=== PATIENT | female | born 1950 | race Caucasian/White ===

== ENCOUNTER 2017-01-21 15:04 | Emergency (ER) | payer MEDICARE ==
[~2017-01-21] VITALS: Ht 162.6 cm; Wt 91.0 kg
[~2017-01-21 15:04] MED LIST: ASCO-96 PO; ASPI-496 PO; ATOR40TA78 PO; BIOT25004 PO; CALC-255 PO; CHOL500015 PO; CIDE300T PO; DIAZ5TAB PO; FISH OIL PO; HYDR-3144 PO; HYDR-3307 PO; LOSA50TA6 PO; MELA5TAB PO; MELATONIN PO; METF500T4 PO; METH750T2 PO; MINO100C PO; MULT-6 PO; OXYC-229 PO; OXYC-302 PO; SENN8.6T12 PO; VITAMIN B PO; VITAMIN D PO; [UNRECOGNIZED DRUG - CODE] PO
[2017-01-21 16:10] VITALS: BP 116/52
[2017-01-21] MEDS ORDERED: LEVO5TAB29 PO (16:12)
[2017-01-21] MEDS ORDERED: OXYB5TAB PO (16:12)
[2017-01-21] MEDS ORDERED: BACL-19 PO (16:14)
[2017-01-21] MEDS ORDERED: POTA15TA9 PO (16:14)
[2017-01-21 16:21] LABS: BLOOD UREA NITROGEN 20 mg/dL (7-18)
[2017-01-21 16:25] LABS: ASPARTATE AMINO TRANSFERASE 20 U/L (15-37)
[2017-01-21] MEDS ORDERED: SODIUM CHLORIDE FLUSH 10ML SYR IVF ONE (16:30)
[2017-01-21] MEDS ORDERED: ONDANSETRON 2MG/ML, 2ML IVPush ONE (16:30)
[2017-01-21] MEDS ORDERED: HYDROmorphone 1 MG/ML, 1ML IVPush PRN (16:30)
== END 2017-01-21 18:31 | disposition home or self-care (01) ==
LOC: ED 18:12
DX: M54.5 Low back pain (principal); E11.9 Type 2 diabetes mellitus without complications; E78.5 Hyperlipidemia, unspecified; F17.200 Nicotine dependence, unspecified, uncomplicated
CPT/HCPCS: 36415; 74176; 80053; 81001; 85025; 87086; 99285

== ENCOUNTER → 2017-04-05 | Outpatient (CLI) | payer MEDICARE ==
[~2017-04-05] MED LIST changes: +BACL-19 PO; +LEVO5TAB29 PO; -MELA5TAB PO; +MELA5TAB19 PO; +OXYB5TAB PO; +POTA15TA9 PO
== END | disposition home or self-care (01) ==
LOC: CFH 13:32
PROVIDERS: ATTEND Nurse Practitioner Family
DX: M48.07 Spinal stenosis, lumbosacral region (principal); G95.89 Other specified diseases of spinal cord; M50.30 Other cervical disc degeneration, unspecified cervical region; M25.78 Osteophyte, vertebrae; M50.322 Other cervical disc degeneration at C5-C6 level; M50.222 Other cervical disc displacement at C5-C6 level; M51.24 Other intervertebral disc displacement, thoracic region; M51.36 Other intervertebral disc degeneration, lumbar region; Z98.890 Other specified postprocedural states
CPT/HCPCS: 72050; 72110; 72141; 72148

== ENCOUNTER → 2017-12-06 | Outpatient (CLI) | payer MEDICARE ==
[~2017-12-06] MED LIST changes: -BIOT25004 PO; +BIOT25005 PO; -HYDR-3144 PO; +HYDR-3245 PO; -OXYC-229 PO; +OXYC-307 PO
== END | disposition home or self-care (01) ==
LOC: CFH 09:03
PROVIDERS: ATTEND Physician Assistant Surgical
DX: N20.0 Calculus of kidney (principal)
CPT/HCPCS: 74018

== ENCOUNTER → 2018-03-30 | Outpatient (CLI) | payer MEDICARE ==
[~2018-03-30] MED LIST changes: -METF500T4 PO; +METF500T5 PO
== END | disposition home or self-care (01) ==
LOC: CFH 13:46
PROVIDERS: ATTEND Nurse Practitioner Family
DX: Z12.31 Encounter for screening mammogram for malignant neoplasm of breast (principal); M50.222 Other cervical disc displacement at C5-C6 level; M50.322 Other cervical disc degeneration at C5-C6 level; M47.812 Spondylosis without myelopathy or radiculopathy, cervical region; R92.1 Mammographic calcification found on diagnostic imaging of breast
CPT/HCPCS: 72050; 72141; 77063; 77067

== ENCOUNTER → 2018-06-20 | Outpatient (CLI) | payer MEDICARE ==
[~2018-06-20] MED LIST changes: +CEPH-375 PO; +DULO30CA2 PO; +GABA-826 PO; -LOSA50TA6 PO; +LOSA50TA7 PO; +METF500T17 PO; -METF500T5 PO
[2018-06-20 08:50] LABS: BASOPHILS # (AUTO) 0.04 x10^3/uL (0-0.1); BASOPHILS % (AUTO) 0 % (0-1); EOSINOPHILS # (AUTO) 0.24 x10^3/uL (0-0.4); EOSINOPHILS % (AUTO) 3 % (1-7); LYMPHOCYTES # (AUTO) 1.51 x10^3/uL (1-3.4); LYMPHOCYTES % (AUTO) 19 % (22-44); MD NO; MEAN CORPUSCULAR HEMOGLOBIN 33.1 pg (27.0-34.8); MEAN CORPUSCULAR HGB CONC 33.6 g/dL (32.4-35.8); MEAN CORPUSCULAR VOLUME 98.5 fL (80-100); MEAN PLATELET VOLUME 7.7 fL (7.4-10.4); MONOCYTES # (AUTO) 0.51 x10^3/uL (0.2-0.8); MONOCYTES % (AUTO) 6 % (2-9); NEUTROPHILS # (AUTO) 5.88 x10^3/uL (1.8-6.8); NEUTROPHILS % (AUTO) 72 % (42-75); PLATELET COUNT 261 x10^3/uL (130-400); RED BLOOD COUNT 4.53 x10^6/uL (3.82-5.3); RED CELL DISTRIBUTION WIDTH 14.5 % (9.6-15.2)
[2018-06-20 08:53] LABS: MICROSCOPIC NOT IND
[2018-06-20 08:58] LABS: INTERNATIONAL NORMALIZED RATIO 1.02 (0.93-1.1); PROTHROMBIN TIME 10.5 Seconds (9.6-11.5)
[2018-06-20 08:59] LABS: ALANINE AMINOTRANSFERASE 32 U/L (12-78); ALBUMIN 3.4 g/dL (3.4-5.0); ANION GAP 8 mmol/L (5-15); CALCIUM 8.3 mg/dL (8.5-10.1); CHLORIDE 109 mmol/L (98-107); CREATININE 0.75 mg/dL (0.55-1.02)
[2018-06-20 09:01] LABS: ALKALINE PHOSPHATASE 60 U/L (45-117); BILIRUBIN,TOTAL 0.3 mg/dL (0.2-1.0); TOTAL PROTEIN 6.8 g/dL (6.4-8.2)
[2018-06-20 09:06] LABS: CULTURE INDICATED? NO
== END | disposition home or self-care (01) ==
LOC: STAR 07:51
PROVIDERS: ATTEND Neurological Surgery
DX: Z01.818 Encounter for other preprocedural examination (principal); M47.812 Spondylosis without myelopathy or radiculopathy, cervical region; I10 Essential (primary) hypertension
CPT/HCPCS: 36415; 71046; 72050; 80053; 81003; 85025; 85610; 85730; 93005

== ENCOUNTER 2018-07-05 11:52 | Inpatient (IN) | payer MEDICARE ==
[~2018-07-05] VITALS: Ht 162.6 cm; Wt 78.3 kg
[~2018-07-05 11:52] MED LIST changes: +BACITRACIN 50,000 UNIT ONE; -BIOT25005 PO; +BUPIVACAINE/PF-EPI 0.5% 1:200K ONE; +THROMBIN 5,000 UNIT VIAL TP ONE
[2018-07-05] MEDS ORDERED: LACTATED RINGERS 1,000 ML IV SCH (12:27)
[2018-07-05] MEDS ORDERED: FENTANYL PF 250 MCG/5ML ONE ×2 (12:45→14:17)
[2018-07-05] MEDS ORDERED: MIDAZOLAM 1 MG/ML, 2ML ONE (12:45)
[2018-07-05] MEDS ORDERED: PROPOFOL 50 ML ONE ×2 (12:50→14:45)
[2018-07-05 13:04] VITALS: BP 120/72
[2018-07-05] MEDS ORDERED: ONDANSETRON 2MG/ML, 2ML ONE (13:53)
[2018-07-05] MEDS ORDERED: SUCCINYLCHOLINE 20 MG/ML, 10ML ONE (13:53)
[2018-07-05] MEDS ORDERED: DEXAMETHASONE 4 MG/ML, 1ML ONE (13:53)
[2018-07-05] MEDS ORDERED: LIDOCAINE 4%, 4 ML SYR/CANN TP ONE (13:53)
[2018-07-05] MEDS ORDERED: ROCURONIUM 10 MG/ML,10ML ONE (13:53)
[2018-07-05] MEDS ORDERED: CEFAZOLIN 1,000 MG ONE (13:53)
[2018-07-05] MEDS ORDERED: LIDOCAINE-MPF 2% ,5ML ONE (13:53)
[2018-07-05] MEDS ORDERED: EPHEDRINE 50 MG/ML, 1ML ONE (14:20)
[2018-07-05] MEDS ORDERED: OXYcodone 5 MG/5 ML ORAL.SOL UDC ONE (16:13)
[2018-07-05] MEDS: FENTANYL PF 100 MCG/2ML IV PRN ×2 (16:25→16:44)
[2018-07-05] MEDS ORDERED: FENTANYL PF 100 MCG/2ML ONE (16:25)
[2018-07-05] MEDS ORDERED: LABETALOL 5MG/ML, 20ML IV PRN (16:30)
[2018-07-05] MEDS ORDERED: DIPHENHYDRAMINE 50 MG/ML, 1ML IVPush PRN ×2 (16:30→18:30)
[2018-07-05] MEDS ORDERED: MIDAZOLAM 1 MG/ML, 2ML IV PRN (16:30)
[2018-07-05] MEDS ORDERED: PROMETHAZINE 12.5 MG SUPP PR PRN (16:30)
[2018-07-05] MEDS ORDERED: hydrALAzine 20 MG/ML, 1ML IV PRN (16:30)
[2018-07-05] MEDS ORDERED: ONDANSETRON 2MG/ML, 2ML IV PRN (16:30)
[2018-07-05] MEDS ORDERED: ALBUTEROL/IPRATROPIUM 2.5MG/0.5MG, 3 ML NPPB PRN (16:30)
[2018-07-05] MEDS ORDERED: OXYcodone 5 MG/5 ML ORAL.SOL UDC PO PRN (16:30)
[2018-07-05] MEDS ORDERED: HYDROmorphone 1 MG/ML, 1ML IV PRN (16:30)
[2018-07-05] MEDS ORDERED: HYDROcodone/APAP 10/325 MG TABLET PO PRN (18:30)
[2018-07-05] MEDS ORDERED: MAGNESIUM HYDROXIDE 8%, 30ML UDC PO PRN (18:30)
[2018-07-05] MEDS ORDERED: BISACODYL 10 MG SUPP PR PRN (18:30)
[2018-07-05] MEDS ORDERED: NS + 20MEQ KCL 1,000 ML IV SCH (18:30)
[2018-07-05] MEDS ORDERED: PROMETHAZINE 25 MG/ML, 1ML IM PRN (18:30)
[2018-07-05] MEDS ORDERED: DIPHENHYDRAMINE 25 MG CAPSULE PO PRN (18:30)
[2018-07-05] MEDS ORDERED: morphine SULFATE 10 MG/ML, 1ML IV PRN (18:30)
[2018-07-05 20:01] VITALS: BP 134/77
[2018-07-05] MEDS ORDERED: ATORVASTATIN 20 MG TABLET PO SCH (21:00)
[2018-07-05] MEDS: ONDANSETRON 2MG/ML, 2ML IV PRN (21:18)
[2018-07-05] MEDS: BACLOFEN 10 MG TABLET PO SCH (22:03)
[2018-07-05] MEDS: LOSARTAN 50MG TABLET PO SCH (22:03)
[2018-07-05] MEDS: OXYBUTYNIN CHLORIDE 5 MG TABLET PO SCH (22:03)
[2018-07-05] MEDS: CEFAZOLIN PMX 1GM/50ML 50 ML IVPB SCH (22:03)
[2018-07-05] MEDS: GABAPENTIN 100 MG CAPSULE PO SCH (22:03)
[2018-07-05] MEDS: POTASSIUM CITRATE 1620 MG HOMEMEDPO SCH (22:04)
[2018-07-06 00:08] VITALS: BP 145/69
[2018-07-06] MEDS: ONDANSETRON 2MG/ML, 2ML IV PRN (03:37)
[2018-07-06 04:18] VITALS: BP 127/62
[2018-07-06] MEDS: OXYcodone/APAP 5/325MG TABLET PO PRN ×3 (05:54→10:45)
[2018-07-06] MEDS: CEFAZOLIN PMX 1GM/50ML 50 ML IVPB SCH (06:33)
[2018-07-06 07:01] VITALS: BP 126/76
[2018-07-06] MEDS: GABAPENTIN 100 MG CAPSULE PO SCH (07:49)
[2018-07-06] MEDS: BACLOFEN 10 MG TABLET PO SCH (07:49)
[2018-07-06] MEDS: OXYBUTYNIN CHLORIDE 5 MG TABLET PO SCH (07:49)
[2018-07-06] MEDS: LOSARTAN 50MG TABLET PO SCH (07:49)
[2018-07-06] MEDS: POTASSIUM CITRATE 1620 MG HOMEMEDPO SCH (07:53)
[2018-07-06] MEDS ORDERED: metFORMIN 500 MG TABLET PO SCH (08:00)
[2018-07-06] MEDS ORDERED: CHOLECALCIFEROL 5,000u TAB PO SCH (09:00)
[2018-07-06] MEDS ORDERED: DULOXETINE 30 MG CAPSULE.DR PO SCH (09:00)
[2018-07-06] MEDS ORDERED: SENNA/DOCUSATE TABLET PO SCH (09:00)
[2018-07-06] MEDS ORDERED: OXYC1TAB7 PO (09:09)
[2018-07-06] MEDS ORDERED: BACL-19 PO (09:09)
[2018-07-06] MEDS ORDERED: BIOT25005 PO (17:13)
== END 2018-07-06 12:18 | disposition home or self-care (01) | DRG 473 ==
LOC: OUT 11:52 → 4NOR 17:03 → OUT 23:17 → OBSVTOIN 23:18 → 4NOR 23:18 → DCLOUNGE 07-06 11:59
PROVIDERS: ADMIT Neurological Surgery; ATTEND Neurological Surgery
PROC: 0RB30ZZ Excision of Cervical Vertebral Disc, Open Approach (ICD-10-PCS; 2018-07-05)
PROC: 4A11X4G Monitoring of Peripheral Nervous Electrical Activity, Intraoperative, External Approach (ICD-10-PCS; 2018-07-05)
PROC: 0RG20A0 Fusion of 2 or more Cervical Vertebral Joints with Interbody Fusion Device, Anterior Approach, Anterior Column, Open Approach (ICD-10-PCS; principal; 2018-07-05 14:00)
DX: M50.123 Cervical disc disorder at C6-C7 level with radiculopathy (principal); M25.78 Osteophyte, vertebrae; I10 Essential (primary) hypertension; R11.0 Nausea; G47.30 Sleep apnea, unspecified
CPT/HCPCS: 72040; 82962; 95938; 95941; 96365; 96366; 96375; 96376; C1713; G0378; J0690; J1100; J2250; J2270; J2405; J2704; J3010; J3480; J3490; J0330; J7120

== ENCOUNTER 2019-01-09 09:45 | Outpatient (CLI) | payer MEDICARE ==
[~2019-01-09 09:45] MED LIST changes: -BACITRACIN 50,000 UNIT ONE; +BIOT25005 PO; -BUPIVACAINE/PF-EPI 0.5% 1:200K ONE; +LOSA50TA14 PO; -LOSA50TA7 PO; +OXYC1TAB7 PO; -THROMBIN 5,000 UNIT VIAL TP ONE
[2019-01-09 12:58] LABS: BASOPHILS # (AUTO) 0.04 x10^3/uL (0-0.1); BASOPHILS % (AUTO) 1 % (0-1); EOSINOPHILS # (AUTO) 0.29 x10^3/uL (0-0.4); EOSINOPHILS % (AUTO) 4 % (1-7); LYMPHOCYTES # (AUTO) 1.49 x10^3/uL (1-3.4); LYMPHOCYTES % (AUTO) 19 % (22-44); MD NO; MEAN CORPUSCULAR HGB CONC 34.3 g/dL (32.4-35.8); MEAN CORPUSCULAR VOLUME 99.1 fL (80-100); MEAN PLATELET VOLUME 7.8 fL (7.4-10.4); MONOCYTES % (AUTO) 5 % (2-9); NEUTROPHILS # (AUTO) 5.88 x10^3/uL (1.8-6.8); NEUTROPHILS % (AUTO) 73 % (42-75); PLATELET COUNT 306 x10^3/uL (130-400); RED BLOOD COUNT 4.61 x10^6/uL (3.82-5.3); RED CELL DISTRIBUTION WIDTH 13.4 % (9.6-15.2)
[2019-01-09 13:05] LABS: HEMOGLOBIN A1C 5.7 % (4.2-6.3)
[2019-01-09 13:37] LABS: CHLORIDE 111 mmol/L (98-107)
[2019-01-09 14:08] LABS: ALANINE AMINOTRANSFERASE 33 U/L (12-78); ALBUMIN 3.9 g/dL (3.4-5.0); ALKALINE PHOSPHATASE 82 U/L (45-117); ANION GAP 6 mmol/L (5-15); BILIRUBIN,TOTAL 0.1 mg/dL (0.2-1.0); CALCIUM 8.8 mg/dL (8.5-10.1); CHOLESTEROL, TOTAL 159 mg/dL (140-239); CREATININE 0.78 mg/dL (0.55-1.02); HDL CHOL % 25 % (28-40); HDL CHOLESTEROL (DIRECT) 40 mg/dL (40-60); LDL CHOLESTEROL,CALCULATED 95 mg/dL (54-169); LDL/HDL RATIO 2.4 (0.5-3.0); TOTAL PROTEIN 7.1 g/dL (6.4-8.2); TRIGLYCERIDES 121 mg/dL (50-200); VLDL CHOLESTEROL 24 mg/dL (0-25)
[2019-01-09 14:19] LABS: FOLATE LEVEL > 20.0 ng/mL (3.1-17.5)
== END 2019-01-09 23:59 | disposition home or self-care (01) ==
LOC: CFH 09:45
PROVIDERS: ATTEND Nurse Practitioner Primary Care
DX: M53.2X2 Spinal instabilities, cervical region (principal); M50.30 Other cervical disc degeneration, unspecified cervical region; M85.9 Disorder of bone density and structure, unspecified; I10 Essential (primary) hypertension; E78.2 Mixed hyperlipidemia; G47.30 Sleep apnea, unspecified; E11.9 Type 2 diabetes mellitus without complications; M85.59 Aneurysmal bone cyst, multiple sites; M54.5 Low back pain; M54.31 Sciatica, right side; Z79.899 Other long term (current) drug therapy; Z78.0 Asymptomatic menopausal state
CPT/HCPCS: 36415; 72040; 77080; 80053; 80061; 82043; 82306; 82607; 82746; 83036; 83735; 84207; 84425; 84443; 85025

== ENCOUNTER 2019-03-24 16:09 | Outpatient (CLI) | payer MEDICARE | END 2019-03-24 23:59 | disposition home or self-care (01) | LOC: RAD 16:09 | PROVIDERS: ATTEND Physician Assistant Surgical | DX: Z87.442 Personal history of urinary calculi (principal) | CPT/HCPCS: 74018 ==

== ENCOUNTER 2019-08-24 11:35 | Emergency (ER) | payer MEDICARE ==
[~2019-08-24] VITALS: Ht 165.1 cm; Wt 79.0 kg
[~2019-08-24 11:35] MED LIST changes: -HYDR-3307 PO; +HYDR-36 PO; +MELA5TAB14 PO; -MELA5TAB19 PO; -MINO100C PO; +MINO100C61 PO; -OXYB5TAB PO; +OXYB5TAB2 PO
[2019-08-24 11:42] VITALS: BP 129/70
[2019-08-24] MEDS ORDERED: KETOROLAC 30 MG/1 ML IM ONE ×2 (12:00)
[2019-08-24] MEDS ORDERED: HYDROcodone/APAP 5/325 TABLET PO ONE (12:00)
[2019-08-24] MEDS ORDERED: METHOCARBAMOL 750 MG TABLET PO ONE (12:00)
[2019-08-24] MEDS ORDERED: KETOROLAC 30 MG/1 ML ONE (12:02)
[2019-08-24] MEDS ORDERED: HYDROcodone/APAP 5/325 TABLET ONE (12:02)
[2019-08-24] MEDS ORDERED: METHOCARBAMOL 750 MG TABLET ONE (12:02)
--- NOTE | 2019-08-24 12:09 | NUR ---
Break RN: Pt to Xray in NAD at this time, medicated per orders, see MAR for details.
== END 2019-08-24 12:44 | disposition home or self-care (01) ==
LOC: ED 12:38
DX: S39.012A Strain of muscle, fascia and tendon of lower back, initial encounter (principal); G89.29 Other chronic pain; I10 Essential (primary) hypertension; E78.5 Hyperlipidemia, unspecified; F17.200 Nicotine dependence, unspecified, uncomplicated; Z87.11 Personal history of peptic ulcer disease; W00.0XXA Fall on same level due to ice and snow, initial encounter; Y93.89 Activity, other specified; Y92.89 Other specified places as the place of occurrence of the external cause; Y99.8 Other external cause status
CPT/HCPCS: 72110; 96372; 99283; J1885

== ENCOUNTER 2019-10-06 09:01 | Emergency (ER) | payer MEDICARE ==
[~2019-10-06] VITALS: Ht 162.6 cm; Wt 80.2 kg
--- NOTE | 2019-10-06 09:26 | NUR ---
PT TO ED AFTER MECHANICAL GLF LAST NIGHT, C/O LOCALIZED BACK PAIN, NO N/T OR PAIN RADIATION. PT SITTING ON GURNEY, PLACED ON MONITOR. HX BACK SURGERY 1Y AGO. CALL LIGHT WITHIN REACH.
--- NOTE | 2019-10-06 09:36 | NUR ---
PT TO CT
[2019-10-06] MEDS ORDERED: KETOROLAC 60 MG/2 ML ONE (10:07)
--- NOTE | 2019-10-06 10:59 | NUR ---
PT RETURNED FROM XRAY. PT MEDICATED PER NOV. C-COLLAR IN PLACE
[2019-10-06] MEDS ORDERED: KETOROLAC 30 MG/1 ML IM ONE (11:00)
[2019-10-06] MEDS ORDERED: METHOCARBAMOL 750 MG TABLET ONE (11:55)
[2019-10-06] MEDS ORDERED: OXYcodone/APAP 5/325MG TABLET ONE (11:56)
[2019-10-06 11:59] VITALS: BP 138/68
[2019-10-06] MEDS ORDERED: OXYcodone/APAP 5/325MG TABLET PO ONE (12:00)
[2019-10-06] MEDS ORDERED: METHOCARBAMOL 500 MG TABLET PO ONE (12:00)
--- NOTE | 2019-10-06 12:01 | NUR ---
RECOMMENDED TO PT SHE STAY AFTER ADDITIONAL PAIN MEDICATION, PT REFUSING. PT AGREES DAUGHTER WILL STAY WITH HER AND SHE WILL NOT DRIVE. VSS.
== END 2019-10-06 12:07 | disposition home or self-care (01) ==
LOC: ED 09:17
DX: G89.11 Acute pain due to trauma (principal); M25.511 Pain in right shoulder; M54.5 Low back pain; M54.6 Pain in thoracic spine; M54.2 Cervicalgia; I10 Essential (primary) hypertension; E11.9 Type 2 diabetes mellitus without complications; E78.5 Hyperlipidemia, unspecified; G89.29 Other chronic pain; F17.200 Nicotine dependence, unspecified, uncomplicated; W01.0XXA Fall on same level from slipping, tripping and stumbling without subsequent striking against object, initial encounter; Y93.89 Activity, other specified; Y92.009 Unspecified place in unspecified non-institutional (private) residence as the place of occurrence of the external cause; Y99.8 Other external cause status
CPT/HCPCS: 72020; 72050; 72072; 72110; 73030; 96372; 99283; J1885

== ENCOUNTER → 2020-10-28 | Outpatient (CLI) | payer MEDICARE ==
[~2020-10-28] MED LIST changes: -HYDR-3245 PO; +HYDR-3248 PO; -HYDR-36 PO; +HYDR1TAB53 PO; +METH-640 PO; -METH750T2 PO; +OXYB-39 PO; -OXYB5TAB2 PO; -OXYC-302 PO; -OXYC-307 PO; +OXYC-380 PO; +OXYC1TAB14 PO
== END | disposition home or self-care (01) ==
LOC: CFH 14:05
PROVIDERS: ATTEND Nurse Practitioner Primary Care
DX: Z12.31 Encounter for screening mammogram for malignant neoplasm of breast (principal)
CPT/HCPCS: 77063; 77067

== ENCOUNTER → 2021-05-09 | Outpatient (CLI) | payer MEDICARE ==
[~2021-05-09] MED LIST changes: +OMNIPAQUE 350 MG/ML, 100ML BOTTLE ONE
== END | disposition home or self-care (01) ==
LOC: CFH 08:15
PROVIDERS: ATTEND Otolaryngology
DX: R59.0 Localized enlarged lymph nodes (principal)
CPT/HCPCS: 70491; Q9967

== ENCOUNTER 2021-06-02 10:37 | Outpatient (CLI) | payer MEDICARE ==
[~2021-06-02 10:37] MED LIST changes: -OMNIPAQUE 350 MG/ML, 100ML BOTTLE ONE; -OXYC-380 PO; +OXYC-501 PO; +OXYC1TAB12 PO; -OXYC1TAB14 PO
[2021-06-02] MEDS ORDERED: LIDOCAINE 1%, 10ML ONE (12:04)
== END 2021-06-02 23:59 | disposition home or self-care (01) ==
LOC: RAD 10:37
PROVIDERS: ATTEND Otolaryngology
DX: R59.0 Localized enlarged lymph nodes (principal); D11.0 Benign neoplasm of parotid gland
CPT/HCPCS: 10005; 38505; 76942; 88305